=== PATIENT | female | born 1975 | race Caucasian/White ===

== ENCOUNTER 2017-11-28 10:44 | Emergency (ER) | payer OTHER ==
[~2017-11-28] VITALS: Ht 165.1 cm; Wt 54.4 kg
[~2017-11-28 10:44] MED LIST: ACCUNEB SO1.25 MG/1 INH; AMOXICILLIN 50500 M1 PO; AMOXICILLIN 50500 MG PO; APAP500 PO; AUGMENTIN 875875 MG PO; BUTALB-APAP-CA1 EACH PO; CLEOCIN HCL150 MG PO; CLEOCIN HCL300 MG PO; HYDROCODONE-AP1 EAC6 PO; HYDROCODONE-APA1 TA1 PO; KEFLEX500 M1 PO; MUCINEX600 MG PO; NORCO 5-325 TA1 EAC1 PO; NORCO 5-325 TA1 EACH PO; ONDANSETRON HCL4 M2 PO; OXYCODONE HCL15 MG; PENICILLIN V P500 MG PO; PERCOCET 5-3251 EACH PO; PHENERGAN 25 MG25 M1 PO; PREDNISONE 20 M20 MG PO; PREDNISONE50 MG PO; PROMS25 WY RECTAL; PROVERA5 MG PO; TAMIFLU45 MG PO; TESSALON200 MG PO; TYLENOL325 MG PO; VALIUM5 MG PO; VENTOLIN HFA 1818 GM INH; VICODIN 5-5001 EACH PO; XANAX XR2 MG; ZANTAC 150MG T150 MG PO; ZOFRAN4 MG PO
[2017-11-28 11:33] LABS: HEMATOCRIT 39.5 % (37.0-47.0); HEMOGLOBIN 13.2 gm/dL (12.0-15.0); MCHC 33.3 g/dL (28.0-37.0); MCV 96.1 fL (80.0-100.0); MPV 10.5 fl. (7.2-11.1); RBC 4.11 mil/uL (4.20-5.00); RDW-CV 13.2 % (10.5-14.5)
[2017-11-28 11:45] LABS: ANION GAP 11 mmol/L (7-16); BUN 12 mg/dL (7-18); CALCIUM 8.5 mg/dL (8.5-10.1); CHLORIDE 106 mmol/L (98-107); CO2 24 mmol/L (21-32); CREATININE 0.6 mg/dL (0.6-1.3); GLUCOSE 95 mg/dL (70-99); POTASSIUM 4.1 mmol/L (3.5-5.1); SODIUM 141 mmol/L (136-145)
[2017-11-28 11:52] LABS: ALBUMIN 3.8 g/dL (3.4-5.0); ALKALINE PHOSPHATASE 54 U/L (46-116); SGOT 17 U/L (15-37); SGPT 17 U/L (30-65); TOTAL BILIRUBIN 0.3 mg/dL (<0.1-1.0); TOTAL PROTEIN 6.9 g/dL (6.4-8.2); TROPONIN-I LEVEL <0.06 ng/mL (<0.06)
[2017-11-28 12:02] LABS: URINE BILIRUBIN NEGATIVE (Negative); URINE BLOOD 3+ (Negative); URINE CLARITY CLOUDY; URINE COLOR RED; URINE GLUCOSE-RANDOM NEGATIVE (Negative); URINE KETONES TRACE (Negative); URINE LEUKOCYTES-REFLEX TRACE (Negative); URINE NITRITE-REFLEX NEGATIVE (Negative); URINE PROTEIN 1+ (Negative); URINE SPECIFIC GRAVITY 1.015 (1.005-1.030); URINE UROBILINOGEN 0.2 E.U./dl (0.2-1.0)
[2017-11-28 12:12] LABS: SQUAMOUS 0-3 Few /LPF (0-3)
[2017-11-28 12:13] LABS: BACTERIA-REFLEX 1-9 Few /HPF (None Seen); CASTS None Seen /LPF (None Seen); CRYSTALS None Seen /LPF (None Seen); MUCUS 0-3 Light strn/LPF (None Seen); URINE RBC >20 Many /HPF (0-2); URINE WBC-REFLEX 6-15 Few /HPF (0-5)
[2017-11-28] MEDS ORDERED: PREDNISONE 20 M20 MG PO (14:21)
[2017-11-28] MEDS ORDERED: VENTOLIN HFA 1818 GM INH ×2 (14:22→14:32)
[2017-11-28] MEDS ORDERED: AUGMENTIN 875-1 EACH PO ×2 (14:22→14:24)
[2017-11-28] MEDS ORDERED: HYDROCODONE-AP1 EAC6 PO ×2 (14:23→14:32)
[2017-11-28] MEDS ORDERED: LEVAQUIN 750 M750 MG PO (14:32)
[2017-11-28 14:56] VITALS: BP 134/92
--- NOTE | 2017-11-28 15:13 | EKG ---
[place] [address] ELECTROCARDIOGRAM REPORT Name: TROY BOATENG FIDE [facility] [id number] Admission: 11/28/17 Attend Phys: Discharge: 11/28/17 Date of : 79 Report #: [id number] THIS REPORT FOR: //name// [facility] ED Test Date: 2017-11-28 Test Time: 12:41:04 Pat Name: TROY BOATENG Department: Room: Gender: F Wireless Engineer: PAULETTE Hairston : 1975 Requested By: Yudi Tipton Order Number: [id number] MD: Case Nickerson Measurements Intervals [place] Rate: 69 P: 47 SD: 107 QRS: 68 QRSD: 87 T: 49 QT: 392 QTc: 420 Interpretive Statements Sinus rhythm Short SD interval No previous ECG available for comparison Electronically Signed On 11-28-2017 15:13:33 CDT by Case Nickerson [email or web address] <ELECTRONICALLY SIGNED> By: Case Nickerson MD, [facility] 11/28/17 1513 1241 1241 Case Nickerson MD, FACC /EPI
== END 2017-11-28 14:57 | disposition home or self-care (01) ==
LOC: M.ERS 10:44
PROVIDERS: Nurse Practitioner Family
DX: J18.9 Pneumonia, unspecified organism (principal); G43.909 Migraine, unspecified, not intractable, without status migrainosus; J45.909 Unspecified asthma, uncomplicated; F17.210 Nicotine dependence, cigarettes, uncomplicated; Z98.890 Other specified postprocedural states; Z88.5 Allergy status to narcotic agent; Z88.6 Allergy status to analgesic agent; Z88.8 Allergy status to other drugs, medicaments and biological substances